=== PATIENT | female | born 1995 | race Caucasian/White ===

== ENCOUNTER 2018-02-18 10:07 | Inpatient (IN) | payer BC, OTHER ==
[~2018-02-18] VITALS: Ht 160 cm; Wt 56.7 kg
[~2018-02-18 10:07] MED LIST: CLON0.1T14 PO; DICY20TA28 PO; ESCI10TA PO; HYDR-3895 PO; METH-406 PO
[2018-02-18 13:10] VITALS: BP 125/83
[2018-02-18 14:21] LABS: *URINE HCG, QUAL NEGATIVE (NEGATIVE)
[2018-02-18] MEDS ORDERED: ONDANSETRON ODT 4 MG TAB.RAPDIS SL PRN (14:30)
[2018-02-18] MEDS ORDERED: ONDANSETRON 4 MG/2 ML VIAL IM PRN (14:30)
[2018-02-18] MEDS ORDERED: MAGNESIUM HYDROXIDE 30 ML LIQUID UDC PO PRN (14:30)
[2018-02-18] MEDS ORDERED: HYDROXYZINE PAMOATE 25 MG CAPSULE PO PRN (14:30)
[2018-02-18] MEDS ORDERED: diphenhydrAMINE 50 MG CAPSULE PO PRN (14:30)
[2018-02-18] MEDS: MULTIVITAMINS,THERAPEUTIC TABLET PO SCH (14:30)
[2018-02-18] MEDS ORDERED: ACETAMINOPHEN 325 MG TABLET PO PRN (14:30)
[2018-02-18] MEDS ORDERED: LOPERAMIDE HCL 2 MG CAPSULE PO PRN (14:30)
[2018-02-18] MEDS ORDERED: MIRALAX 17 GM POWD.PACK PO PRN (14:30)
[2018-02-18] MEDS ORDERED: LORAZEPAM 1 MG TABLET PO PRN (14:30)
[2018-02-18] MEDS ORDERED: MAG HYDROX/AL HYDROX/SIMETH 30 ML LIQUID UDC PO PRN (14:30)
[2018-02-18 14:52] LABS: *AMPHETAMINE, URINE NEGATIVE (NEGATIVE); *BARBITURATE, URINE NEGATIVE (NEGATIVE); *CANNABINOID, URINE NEGATIVE (NEGATIVE); *COCCAINE, URINE NEGATIVE (NEGATIVE); *OPIATE, URINE POSITIVE (NEGATIVE); *PHENCYCLIDINE SCREEN,URINE NEGATIVE (NEGATIVE)
[2018-02-18 16:00] VITALS: BP 101/55
[2018-02-18 20:00] VITALS: BP 118/86
[2018-02-18 20:35] LABS: BASOPHILS # (AUTO) 0.1 K/uL (0.0-8.0); BASOPHILS % (AUTO) 0.8 % (0.0-2.0); EOSINOPHILS # (AUTO) 0.5 K/uL (0.0-0.7); EOSINOPHILS % (AUTO) 6.6 % (0.0-7.0); HEMATOCRIT 45.6 % (31.2-41.9); HEMOGLOBIN 15.6 g/dL (10.9-14.3); LYMPHOCYTES # (AUTO) 2.3 K/uL (20.0-40.0); LYMPHOCYTES % (AUTO) 31.3 % (20.5-51.5); MEAN CORPUSCULAR HEMOGLOBIN 30.8 uug (24.7-32.8); MEAN CORPUSCULAR HGB CONC 34 g/dL (32.3-35.6); MONOCYTES # (AUTO) 0.3 K/uL (2.0-10.0); MONOCYTES % (AUTO) 3.8 % (0.0-11.0); NEUTROPHILS # (AUTO) 4.2 K/uL (1.8-8.9); NEUTROPHILS % (AUTO) 57.5 % (38.5-71.5); PLATELET COUNT (AUTO) 326 K/uL (179-408); RED BLOOD CELL COUNT(AUTO) 5.07 MIL/uL (3.63-4.92); WHITE BLOOD COUNT (AUTO) 7.4 K/uL (3.8-11.8)
[2018-02-18 20:44] LABS: ETHANOL < 3 MG/DL (0-0)
[2018-02-18 20:52] LABS: ALANINE AMINOTRANSFERASE 17 U/L (14-59); ALKALINE PHOSPHATASE 65 U/L (50-136); ASPARTATE AMINOTRANSFERASE 18 U/L (15-37); BILIRUBIN,TOTAL 0.4 mg/dL (0.2-1.0); CARBON DIOXIDE 24 mmol/L (21-32); CHLORIDE 104 mmol/L (98-107); CREATININE 0.7 mg/dL (0.6-1.3); GLUCOSE 129 mg/dL (74-106); MAGNESIUM 2.2 mg/dL (1.8-2.4); POTASSIUM 3.7 mmol/L (3.5-5.1); TOTAL PROTEIN, SERUM 7.1 g/dL (6.4-8.2); UREA NITROGEN, BLOOD 9 mg/dL (7-18)
[2018-02-18] MEDS: BUPRENORPHINE HCL 2 MG TAB.SUBL SL PRN (21:45)
[2018-02-18] MEDS: CLONIDINE HCL 0.1 MG TABLET PO PRN (21:45)
[2018-02-18] MEDS: TRAZODONE 50 MG TABLET PO PRN (21:45)
[2018-02-18] MEDS: METHOCARBAMOL 750 MG TABLET PO PRN (21:45)
[2018-02-19] VITALS: BP 107/77
[2018-02-19 05:10] VITALS: BP 117/69
[2018-02-19] MEDS: BUPRENORPHINE HCL 2 MG TAB.SUBL SL PRN (05:11)
[2018-02-19] MEDS ORDERED: 4 DAY TAPER BUPRENORPHINE -SERENITY PROTOCOL SL PRN (06:00)
[2018-02-19 08:00] VITALS: BP 119/83
[2018-02-19] MEDS ORDERED: TUBERCULIN,PURIF.PROT.DERIV. 5 TU/0.1 ML TEST ID ONE (09:00)
[2018-02-19] MEDS: IBUPROFEN 600 MG TABLET PO PRN (09:07)
[2018-02-19] MEDS: CLONIDINE HCL 0.1 MG TABLET PO PRN ×2 (09:07→21:43)
[2018-02-19] MEDS: BUPRENORPHINE HCL 2 MG TAB.SUBL SL SCH ×3 (09:07→21:44)
[2018-02-19] MEDS: METHOCARBAMOL 750 MG TABLET PO PRN (09:07)
[2018-02-19] MEDS: MULTIVITAMINS,THERAPEUTIC TABLET PO SCH (09:07)
[2018-02-19 12:00] VITALS: BP 91/50
[2018-02-19 16:00] VITALS: BP 91/55
[2018-02-19 20:00] VITALS: BP 118/77
[2018-02-19] MEDS ORDERED: ESCITALOPRAM OXALATE 10 MG TABLET PO SCH (21:00)
[2018-02-19] MEDS: TRAZODONE 50 MG TABLET PO PRN (21:43)
[2018-02-20] MEDS: IBUPROFEN 600 MG TABLET PO PRN (03:06)
[2018-02-20 08:00] VITALS: BP 90/52
[2018-02-20] MEDS: MULTIVITAMINS,THERAPEUTIC TABLET PO SCH (08:31)
[2018-02-20] MEDS ORDERED: BUPRENORPHINE HCL 2 MG TAB.SUBL SL SCH (09:00)
[2018-02-20 12:00] VITALS: BP 112/78
[2018-02-20] MEDS: BUPRENORPHINE HCL 2 MG TAB.SUBL SL SCH ×2 (14:57→21:15)
[2018-02-20 16:30] VITALS: BP 91/50
[2018-02-20 20:00] VITALS: BP 117/73
[2018-02-20] MEDS: METHOCARBAMOL 750 MG TABLET PO PRN (21:14)
[2018-02-20] MEDS: TRAZODONE 50 MG TABLET PO PRN (22:06)
[2018-02-21] VITALS: BP 110/66
[2018-02-21 04:30] VITALS: BP 112/66
[2018-02-21] MEDS: CLONIDINE HCL 0.1 MG TABLET PO PRN (04:34)
[2018-02-21 08:09] VITALS: BP 98/64
[2018-02-21 09:07] LABS: HEPATITIS B SURFACE AG Negative (Negative)
[2018-02-21] MEDS: ESCITALOPRAM OXALATE 10 MG TABLET PO SCH (09:32)
[2018-02-21] MEDS: MULTIVITAMINS,THERAPEUTIC TABLET PO SCH (09:32)
[2018-02-21] MEDS: BUPRENORPHINE HCL 2 MG TAB.SUBL SL SCH ×3 (09:32→21:21)
[2018-02-21 12:07] VITALS: BP 99/62
[2018-02-21] MEDS: IBUPROFEN 600 MG TABLET PO PRN (13:33)
[2018-02-21 16:30] VITALS: BP 105/68
[2018-02-21 20:00] VITALS: BP 108/79
[2018-02-21] MEDS: QUETIAPINE FUMARATE 25 MG TABLET PO SCH (21:21)
[2018-02-22] VITALS: BP 105/62
[2018-02-22 04:00] VITALS: BP 97/61
[2018-02-22 08:00] VITALS: BP 134/92
[2018-02-22] MEDS ORDERED: BUPRENORPHINE HCL 2 MG TAB.SUBL SL SCH (09:00)
[2018-02-22] MEDS: ESCITALOPRAM OXALATE 10 MG TABLET PO SCH (09:03)
[2018-02-22] MEDS: MULTIVITAMINS,THERAPEUTIC TABLET PO SCH (09:04)
[2018-02-22 12:00] VITALS: BP 129/84
[2018-02-22] MEDS ORDERED: NALO4SPR NS (13:29)
[2018-02-22] MEDS ORDERED: ESCI10TA PO (13:29)
[2018-02-22] MEDS ORDERED: DICY20TA28 PO (13:29)
[2018-02-22] MEDS ORDERED: METH-406 PO (13:29)
[2018-02-22] MEDS ORDERED: QUET25TA PO (13:29)
[2018-02-22] MEDS ORDERED: CLON0.1T14 PO (13:29)
[2018-02-22] MEDS ORDERED: HYDR-3895 PO (13:29)
[2018-02-22 16:00] VITALS: BP 117/83
[2018-02-22] MEDS: IBUPROFEN 600 MG TABLET PO PRN (18:05)
[2018-02-22 20:00] VITALS: BP 138/89
[2018-02-22] MEDS: METHOCARBAMOL 750 MG TABLET PO PRN (21:18)
[2018-02-22] MEDS: QUETIAPINE FUMARATE 25 MG TABLET PO SCH (21:18)
[2018-02-22] MEDS: CLONIDINE HCL 0.1 MG TABLET PO PRN (21:18)
[2018-02-23] VITALS: BP 119/78
[2018-02-23] MEDS: ESCITALOPRAM OXALATE 10 MG TABLET PO SCH (09:03)
[2018-02-23] MEDS: MULTIVITAMINS,THERAPEUTIC TABLET PO SCH (09:03)
== END 2018-02-23 10:08 | disposition other institution (70) | DRG 895 ==
LOC: SRC 12:49
PROVIDERS: ADMIT Internal Medicine Addiction Medicine; ATTEND Internal Medicine Addiction Medicine
PROC: HZ2ZZZZ Detoxification Services for Substance Abuse Treatment (ICD-10-PCS; principal; 2018-02-18)
PROC: HZ41ZZZ Group Counseling for Substance Abuse Treatment, Behavioral (ICD-10-PCS; 2018-02-20)
PROC: HZ31ZZZ Individual Counseling for Substance Abuse Treatment, Behavioral (ICD-10-PCS; 2018-02-21)
DX: F11.23 Opioid dependence with withdrawal (principal); F33.1 Major depressive disorder, recurrent, moderate; G40.509 Epileptic seizures related to external causes, not intractable, without status epilepticus; F41.1 Generalized anxiety disorder; F17.210 Nicotine dependence, cigarettes, uncomplicated; Z81.1 Family history of alcohol abuse and dependence; Z81.8 Family history of other mental and behavioral disorders; Z81.3 Family history of other psychoactive substance abuse and dependence; Z79.899 Other long term (current) drug therapy; R73.9 Hyperglycemia, unspecified; G47.00 Insomnia, unspecified
CPT/HCPCS: 36415; 70030-TC; 80307; 83735; 84443; 84703; 85025; 86580; 86592; 86705; 86803; 87340; 87806; 93005; G0480; Q0162